=== PATIENT | female | born 2005 | race Caucasian/White ===

== ENCOUNTER 2025-07-07 15:55 | Inpatient (IN) ==
[2025-07-07 16:47] LABS: Hematocrit (blood only) 41.3 % (37.0-47.0); Hemoglobin 13.6 g/dl (12.0-16.0); Immature Granulocytes # (auto) 0.02 K/uL (0.01-0.20); Immature Granulocytes % (auto) 0.3 %; Mean Corpuscular Hemoglobin 26.1 pg (25.0-34.0); Mean Corpuscular Volume 79.3 fL (80.0-100.0); Platelet Count 251 K/uL (130-400); RDW Standard Deviation 35.6 fL (36.4-46.3); Red Blood Count 5.21 M/uL (4.20-5.40); White Blood Count 5.86 K/ul (4.8-10.8)
[2025-07-07 16:48] LABS: Appearance Urine Clear (Clear); Glucose Urine UA Negative (Negative)
[2025-07-07 17:01] LABS: Pregnancy Test, Serum Negative (Negative)
[2025-07-07 17:09] LABS: Alanine Aminotransferase 14 U/L (7-52); Albumin Globulin Ratio 1.0 (0.9-2); Albumin Level 4.3 gm/dl (3.4-5.0); Alkaline Phosphatase 73 U/L (34-104); Anion Gap 10 (3-11); Bilirubin,Total 0.4 mg/dl (0.2-1.0); Blood Urea Nitrogen 9 mg/dl (6-23); Calcium 9.4 mg/dl (8.6-10.3); Carbon Dioxide 22 mmol/L (21-32); Chloride 109 mmol/L (98-107); Globulin 4.2 gm/dl (2.5-4.0); Glucose 99 mg/dl (70-99(Fasting)); Potassium 3.8 mmol/L (3.5-5.1); Sodium 141 mmol/L (136-145); Total Protein 8.5 gm/dl (6.0-8.3)
[2025-07-07 17:16] LABS: Acetaminophen < 3 ug/ml (10-30); Salicylate < 3.0 mg/dl (3.0-30)
--- NOTE | 2025-07-07 17:17 | Emergency Department Note ---
Impression & Plan Threatening suicide, Alcohol intoxication ED Provider Note NAME: MANNY EGAN AGE: 19 SEX: F : 2005 ARRIVES VIA: Ambulance INFORMANT: [Patient] ED PROVIDER(S): [Robert Fritz MD] CHIEF COMPLAINT: Mental health evaluation HISTORY OF PRESENT ILLNESS: The patient is a 19-year-old female who apparently spoke with her sister today and made some suicidal comments. She talked about killing herself with a gun. She though does not own a gun. Because of the comments, she was brought to the hospital for evaluation. She does admit that she was drinking alcohol today but, she states that she was having the thoughts even before drinking. He did talk with our family preservation caseworker prior to my evaluation and, said that if she could not obtain a gun, she would think about drinking alcohol to the point of causing her self harm or, taking [id number] meds to harm herself. The patient states that despite her comments, she would never really hurt herself. She has had suicidal thoughts like this for many years. The patient is upset and depressed over her relationship with her roommates. She states that she is also under a bit of stress from her family. She has never had inpatient mental health treatment. PMHx/PSHx/Social Hx: See Below PHYSICAL EXAM: GENERAL: Patient is in no acute distress. HEENT: No acute trauma, normocephalic atraumatic, mucous membranes dry, no nasal congestion. NECK: No stridor, no adenopathy, no meningismus, trachea is midline. LUNGS: Clear to auscultation bilaterally, no wheeze, no rhonchi, breath sounds equal. HEART: Without murmurs gallops or rubs, regular rate and rhythm. ABDOMEN: Soft, nontender, no peritonitis. EXTREMITIES: No cyanosis, full range of motion of all the joints without pain or difficulty. NEUROLOGIC: Oriented x 3, no acute motor or sensory deficits, no focal weakness. Very subtle speech is slur and oriented. SKIN: No jaundice, no diaphoresis. Psychiatric: Cooperative, voluntary, admits to some suicidal ideation. DIFFERENTIAL DIAGNOSIS: Psychosis, suicidality, alcohol abuse, among others. EMERGENCY DEPARTMENT PROCEDURES: MEDICAL DECISION MAKING: There is no leukocytosis or concerning anemia. There is a normal platelet count. No bandemia. No renal failure or significant electrolyte abnormality. No concerning liver enzyme elevation. Patient appeared to be in a euthyroid state. testing was negative. Urinalysis did not show infection. Aspirin, Tylenol was undetectable. Urine tox was positive for marijuana. Alcohol level was elevated at 241. COVID test was negative. On exam, the patient did appear somewhat intoxicated with alcohol. She was cooperative. Patient is alcohol was allowed to spontaneously clear. Patient was felt clinically sober at around 10:30 PM, 6 hours from when the initial alcohol level was obtained. She was felt medically clear. Patient was seen by psychiatry case management. The patient understands that she is in need of mental health care and, prefers a voluntary psychiatric stay. The 302 petition was denied. A voluntary psychiatric bed search was initiated. Case was assumed by Dr. Eaton at shift change. Prior/Outside records/notes reviewed: None Imaging/x-ray results per my interpretation: Chronic Medical/Social conditions affecting care: None Care/Management discussed with: Psychiatry case management. Level of care consideration(s): After review of the information above and other included data: --I believe the patient requires escalation of care to admission/transfer for a voluntary psychiatric hospitalization. DISPOSITION: Still a patient in the ED. Past Med/Surg History Problem List Alcohol intoxication (Acute) Threatening suicide (Acute) Medical History No significant medical problems Social History Smoking Status: Never smoker Preferred Language: Uzbek Feels Safe at Home: Yes Gender Identity: Female Home Meds Home Medications Medication Instructions Recorded Confirmed Unobtainable 12/28/24 12/28/24 Results & Data (ED) Vital Signs Vital Signs - 24 hr 07/07/25 16:10 07/07/25 16:30 07/07/25 18:45 Temperature 36.8 C 36.8 C Temperature Source Oral Oral Pulse Rate 101 H Pulse Rate [Finger] 88 89 Pulse Rhythm [Finger] Pulse Strength [Finger] Respiratory Rate 20 20 16 Respiratory Effort / Characteristics Non-Labored Spontaneous Respiratory Depth Normal Respiratory Pattern Blood Pressure 125/84 Blood Pressure [Right Arm] 125/84 122/83 Blood Pressure Mean 97 Blood Pressure Mean [Right Arm] 97 96 Blood Pressure Position Sitting Blood Pressure Position [Right Arm] Pulse Oximetry 97 97 98 Oxygen Delivery Method Room Air Room Air Room Air Sepsis Recent Fever Within 48 Hours No Sepsis New/Unexplained Change in Mental Status No Sepsis Action Taken by Nursing No Action Required 07/07/25 21:12 Temperature Temperature Source Pulse Rate Pulse Rate [Finger] 88 Pulse Rhythm [Finger] Regular Pulse Strength [Finger] Normal Respiratory Rate 18 Respiratory Effort / Characteristics Non-Labored Spontaneous Respiratory Depth Normal Respiratory Pattern Regular Blood Pressure Blood Pressure [Right Arm] 131/83 Blood Pressure Mean Blood Pressure Mean [Right Arm] 99 Blood Pressure Position Blood Pressure Position [Right Arm] Semi-fowlers Pulse Oximetry 96 Oxygen Delivery Method Room Air Sepsis Recent Fever Within 48 Hours Sepsis New/Unexplained Change in Mental Status Sepsis Action Taken by Usp Medications Current Medication List: was personally reviewed by me Laboratory Data Attestation: I reviewed the patient's lab results. 07/07/25 16:30 07/07/25 16:30 Lab Results 07/07/25 Range/Units 16:30 WBC 5.86 (4.8-10.8) K/ul RBC 5.21 (4.20-5.40) M/uL Hgb 13.6 (12.0-16.0) g/dl Hct 41.3 (37.0-47.0) % MCV 79.3 L (80.0-100.0) fL MCH 26.1 (25.0-34.0) pg MCHC 32.9 (32.0-36.0) g/dL RDW Std Deviation 35.6 L (36.4-46.3) fL RDW Coeff of Rebecca 12.4 (11.5-14.5) % Plt Count 251 (130-400) K/uL MPV 10.7 (9.4-12.4) fL Immature Gran % (Auto) 0.3 % Neut % (Auto) 55.4 % Lymph % (Auto) 33.8 % Desha % (Auto) 9.7 % Eos % (Auto) 0.3 % Baso % (Auto) 0.5 % Neut # (Auto) 3.24 (1.40-6.50) K/uL Lymph # (Auto) 1.98 (1.20-3.40) K/uL Desha # (Auto) 0.57 (0.11-0.59) K/uL Eos # (Auto) 0.02 (0.00-0.50) K/uL Baso # (Auto) 0.03 (0.00-0.20) K/uL Immature Gran # (Auto) 0.02 (0.01-0.20) K/uL Sodium 141 (136-145) mmol/L Potassium 3.8 (3.5-5.1) mmol/L Chloride 109 H (98-107) mmol/L Carbon Dioxide 22 (21-32) mmol/L Anion Gap 10 (3-11) BUN 9 (6-23) mg/dl Creatinine 0.84 (0.6-1.2) mg/dl Est Cr Clr Drug Dosing Not Reportable eGFR 102.60 BUN/Creatinine Ratio 10.7 (10-20) Glucose 99 (70-99(Fasting)) mg/dl Calcium 9.4 (8.6-10.3) mg/dl Total Bilirubin 0.4 (0.2-1.0) mg/dl AST 20 (13-39) U/L ALT 14 (7-52) U/L Alkaline Phosphatase 73 (34-104) U/L Total Protein 8.5 H (6.0-8.3) gm/dl Albumin 4.3 (3.4-5.0) gm/dl Globulin 4.2 H (2.5-4.0) gm/dl Albumin/Globulin Ratio 1.0 (0.9-2) TSH 1.762 (0.300-4.500) uIu/ml HCG, Qual Negative (Negative) Urine Color Yellow Urine Appearance Clear (Clear) Urine pH 6.0 (4.5-7.5) Ur Specific [place] 1.003 (1.000-1.030) Urine Protein Negative (Negative) Urine Glucose (UA) Negative (Negative) Urine Ketones Negative (Negative) Urine Blood Negative (Negative) Urine Nitrite Negative (Negative) Urine Bilirubin Negative (Negative) Urine Urobilinogen Negative (Negative) Ur Leukocyte Esterase Negative (Negative) Urine Comment Salicylates < 3.0 L (3.0-30) mg/dl Urine Opiates Screen Neg (Neg) Ur Methadone, Qual Neg (Neg) Urine Fentanyl Screen Neg (Neg) Acetaminophen < 3 L (10-30) ug/ml Urine Barbiturates Neg (Neg) Ur Phencyclidine (PCP) Neg (Neg) U Amphetamin/Meth Scrn Neg (Neg) MDMA (Ecstasy) Screen Neg (Neg) U Benzodiazepines Scrn Neg (Neg) Ur Cocaine Metabolite Neg (Neg) U Marijuana (THC) Screen Pos H (Neg) Ethyl Alcohol mg/dL 241.7 H (<10.0) mg/dl SARS-CoV-2, RNA, NAAT NEGATIVE (NEGATIVE) Discharge Plan Visit Data Chief Complaint: Mental Health Evaluation Stated Complaint: [facility] ED Provider: Robert Fritz Discharge Problem: Threatening suicide, Alcohol intoxication Patient Disposition: Still a Patient Condition: Good Forms Stand Alone Forms: [facility], Suicide Prevention Resources Prescriptions Prescriptions: No Action Unobtainable Referrals Referrals: PCP,NO [Physician] - Discharge Problem: Alcohol intoxication Qualifiers: Complication of substance-induced condition: with unspecified complication Q ualified Code(s): F10.929 - Alcohol use, unspecified with intoxication, unspecified
[2025-07-07 17:24] LABS: Thyroid Stimulating Hormone 1.762 uIu/ml (0.300-4.500)
[2025-07-07 17:38] LABS: Amphetamines+Metham, Urine Neg (Neg); MDMA (Ecstacy), Urine Neg (Neg); Marijuana, Urine Pos (Neg)
--- NOTE | 2025-07-08 00:18 | Emergency Department Note ---
ED Visit Note Patient was signed out to me at change of shift by Dr. Fritz. Patient is currently voluntary, bed search was initiated. Patient is here for alcohol intoxication and suicidal thoughts. Current plan is for the patient to be evaluated first by [facility] for placement, this is pending later this morning, patient was therefore signed out to my colleague, Dr. Rosas, pending placement for inpatient care under voluntary status. .
--- NOTE | 2025-07-08 08:00 | Emergency Department Note ---
ED Visit Note I received signout from Dr. Henderson. The patient had been drinking last evening was reportedly suicidal currently voluntary and pending evaluation by [facility] for inpatient treatment. Patient was admitted to [facility] for inpatient treatment. .
[2025-07-08] MEDS ORDERED: ALUMINUM/MAGNESIUM SUSP 30 ML UDC PO PRN (11:06)
[2025-07-08] MEDS ORDERED: BISMUTH SUBSALICYLATE 262 MG CHEW PO PRN (11:06)
[2025-07-08] MEDS ORDERED: ACETAMINOPHEN 325 MG TAB PO PRN (11:06)
[2025-07-08] MEDS ORDERED: MAGNESIUM HYDROXIDE SUSP 30 ML UDC PO PRN (11:06)
[2025-07-08] MEDS ORDERED: SODIUM CHLORIDE 0.65% NA SOLN 45 ML (OCEAN) PRN (11:06)
--- NOTE | 2025-07-08 11:43 | History & Physical ---
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 Diagnostically consistent with unspecified depression with differential including major depressive disorder versus exacerbation of borderline personality disorder with suicidal ideation versus adjustment disorder with depressed mood versus alcohol-induced mood symptoms as well as generalized anxiety disorder. Discussed medication treatment options in detail. Discussed risks, benefits and alternatives. Patient would like to start and consented to sertraline for depression and anxiety. Reviewed side effects including but not limited to: GI, MARKS, sexual side effects, and counseled on black box warning of potential for emergence of or increased SI and need to let staff know should this occur or should they feel unsafe. Also discussed importance of seeking emergency care following discharge if this side effect occurs in the future. She wants to continue with lamictal for off-label use for depression, reviewed side effects including potential for fatal rash/SJS, importance of slow titration monitored by provider, and need to restart at lower dose if she ever misses more than 3 days. The patient's use history and negative consequences suggests possible substance use disorder. Motivational interviewing was done as a brief intervention. Intervention was greater than 5 minutes in length and included assessing readiness to quit, advice on how to reduce or abstain and to set a specific goal for this hospitalization. domestic laundry worker will also assist in anticipating barri ers to reducing or abstaining from substance use and in problem-solving for solutions to those problems while arranging for referral to appropriate treatment. The patient is in contemplative stage with regards to transtheoretical model of change. Recommended decreasing consumption due to disinhibiting effects and potential for worsening psychiatric symptoms. Overall I spent a total of 75 minutes for this admission including review of chart records, review of labwork, direct evaluation of the patient, counseling the patient, ordering medication, risk assessment, discussion with the psychiatric liason RN and documentation in the electronic health record. (1) Depression with suicidal ideation: (2) Alcohol intoxication: Complication of substance-induced condition: with unspecified complication Qualified Code(s): F10.929 - Alcohol use, unspecified with intoxication, unspecified (3) LAWRENCE (generalized anxiety disorder): Plan 07/08/2025: The patient was admitted to the [facility] ([facility]) on q15 min checks (behavioral with suicide precautions) for safety. The patient will participate in group, recreational, and milieu therapies and will be offered additional individual and family sessions as clinically appropriate. -Start sertraline 50mg daily -Continue Lamictal 50mg daily -Consider options for IOP Inventory Assets Strengths: supportive relationships, willing to get treatment Needs: safety and stabilization, medication adjustment, additional coping skills, increased outpatient services Suicide Risk Level Suicide Risk Level: Moderate (q15 min suicide checks) (depression with increased SI in context of conflict with roommates but mood improving and feels safe in the hospital and feels able to ask for support) Risk Factors Assessment Male: No : Yes Do You Have Access To A Gun?: No Health Problems: No Mental Health Diagnoses: Yes Previous Attempt: No Family History of Suicide: No Previous Psychiatric Hospitalization: No Hopelessness: No Protective Factors Assessment : No Responsible for Young Children: No Employed: Yes Supportive Family: Yes Good Rapport with Provider: Yes Psychiatric History Identifying Data MANNY Nielsen" is a 19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 Chief Complaint "Yesterday was just a really bad day". History of Present Illness Latia presents for psychiatric admission following suicidal statements made to her sister over the phone, which resulted in police intervention and hospitalization. She reports that yesterday was "just a really bad day" following what has been "a rough year." She explains that she has been doing well for the past few months, but yesterday represented a significant crash. The precipitating stressors began over the last week when she realized her friend and roommate "hates me" and on Wednesday one of her roommates told her "I think it is probably best that you move out, and I think everybody else in this house shares that sentiment." She also lost her birthday cake that she had been looking forward to for 5 years, which added to her disappointment. She describes severe ongoing conflict with all three of her roommates, who she reports "hate me." She explains that one roommate, who was previously one of her closest friends, has apparently hated her for 3 months without her knowledge and has been manipulating their friend group by talking negatively about her behind her back. Due to this hostile living environment, she has been isolating in her room and avoiding common areas of the townhouse. The roommates have told her to move out, creating additional stress about finding new housing within a month. On Wednesday night she had poor sleep due to her roommates being loud with people they had invited over. She was trying to remain excited for her birthday libertarian despite none of her roommates attending but then she lost her birthday cake. She reports listening to Radiohead, which she acknowledges "don't really make happy music" and may have been "the final straw." She began drinking around noon and called her sister around 12:30 PM as a coping mechanism, having been encouraged by others to talk to someone when feeling suicidal rather than dealing with it alone as she typically does. The roommates overheard her conversation and called police, who arrived around 1:00 PM on Wednesday. She had an elevated alcohol level when she arrived at the hospital, having consumed alcohol over approximately an hour to hour and a half span prior to being brought to the ED. She describes her typical pattern of suicidal thoughts as lasting about an hour before passing, and she reports feeling she was "starting to come out of it" when police arrived. She denies current suicidal ideation and states she was frustrated that using a healthy coping skill for the first time resulted in hospitalization when she typically works through these episodes independently. She reports she sometimes thinks about suicidal plans but "never in a serious way". However, she does acknowledge telling ED providers that she was considering suicide via multiple possible means like overdosing, using a gun or drinking herself to with alcohol and recognizes this is a bit at odd's with her current reflection of her suicidality being brief and fairly benign. She describes her reasons for living as not wanting to remove her "awesomeness" from the world, wanting to have children and get , and viewing suicide as "lame" and "too much work." Latia is currently taking Lamictal 50mg in the morning for mood swings, which she started approximately a month and a half ago in early April. She reports discussing the possibility of borderline personality disorder with her out patient providers. She previously took Zoloft in 11th grade for anxiety, which worked well, and she discontinued it when she felt she no longer needed it and her anxiety resolved. Psychiatric ROS notable for no current nor history of symptoms of suzanne, psychosis, PTSD, OCD nor eating disorder nor self-harm. Past Psychiatric History Current Psychiatric Diagnosis: Depression, Borderline Personality Disorder Outpatient Services: Therapist-Antonia, sees her weekly or twice monthly when doing well Psychiatrist-Kasandra Stafford ([facility]), have seen her twice Previous Psych Admissions: none Do You Have Access To A Gun?: No History of Previous Suicide Attempt: No Past Medication Trials: zoloft (helpful, stopped because she didn't need it anymore) Past Head Trauma/Neuro History History of Concussion/Seizure: No Allergies Allergy/AdvReac Type Severity Reaction Status Date / Time No Known Allergies Allergy Unverified 07/08/25 11:30 Home Medications Medication Instructions Recorded Confirmed Type drospirenone 3 mg-ethinyl 1 tab PO DAILY 07/08/25 07/08/25 History estradiol 0.02 mg tablet (Vestura (28)) lamotrigine 25 mg tablet 50 mg PO DAILY 07/08/25 07/08/25 History Family History Family History of: Anxiety (father's side) and Other-List under Comment (mom- ADHD, maternal grandfather with narcissism/cluster B) Alcohol History Hx of Alcohol Use Over the Past 12 Months: Yes periods of binge drinking but she feels her drinking is well controlled, sometimes 5 drinks over 2-3 hours and drinks once every other week Smoking Use Smoking Status: Never smoker Substance History Hx of Prescription Med Misuse Over the Past 12 Months: No Hx of Over the Counter Med Misuse Over the Past 12 Months: No Hx of Inhalent Misuse Over the Past 12 Months: No Hx of Organic Substance Use Over the Past 12 Months: Yes (marijuana) Hx of Illegal Substances/Street Drug Use Over Past 12 Months: No Problems as a Result of Past Substance Use: Loss of Family Support Problems as a Result of Past Substance Use Comments: underage drinking last year Personal History Living Arrangements: Apartment Highest Grade Completed: Some College ([employer]) 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) Marital Status: Single Current Legal Problems: No Hx Legal Problems: Yes (December underage drinking, now expunged) Hx Traumatic Life Events: Yes Patient History Medical History No significant medical problems Social History Smoking Status: Never smoker Preferred Language: Upper Sorbian Communication Ability: Effective Internal Communications Writer Required: No Beliefs That Will Affect Care: None Feels Safe at Home: Yes Gender Identity: Female Assistive Devices: None Review of Systems Review of Systems: All systems reviewed & are unremarkable except as noted in HPI & below (periods of low back pain) Physical Exam Psychiatric: Orientation: alert and oriented x 3 Apperance: appropriately dressed and appropriately groomed Eye Contact: good eye contact Motor Behavior: no abnormal motor movements Speech: normal rate/rhythm/volume of speech Affect: euthymic affect, + tearful affect and + labile affect; + mood not congruent with affect Mood: + depressed mood and + anxious mood Thought Process: goal directed thought process Thought Content: reality based without delusions Suicidal Thoughts: denies suicidal plan and denies suicidal intent; + reports suicidal thoughts (intermittent thoughts ) Homicidal Thoughts: denies homicidal thoughts Hallucinations: no auditory hallucinations and no visual hallucinations Cognition: recent memory grossly intact, remote memory grossly intact, attention grossly intact and language grossly intact Estimated Intelligence: consistent with education level Insight: + fair insight Judgment: + limited judgement Vital Signs (Past 24 Hours): Last Vital Signs Temp 36.8 C 07/07/25 16:30 Pulse 86 07/08/25 09:54 Resp 18 07/08/25 09:54 BP 129/72 07/08/25 09:54 Pulse Ox 98 07/08/25 09:54 O2 Del Method Room Air 07/08/25 09:54 Exam Statement: A physical exam was performed in the ED by Dr. Fritz for the purposes of medical clearance. I accept that physical as correct and adequate for the purposes of the inpatient physical exam. Results & Data ([facility]) Laboratory Results Laboratory Results - last 24 hr 07/07/25 16:30 WBC 5.86 RBC 5.21 Hgb 13.6 Hct 41.3 MCV 79.3 L MCH 26.1 MCHC 32.9 RDW Std Deviation 35.6 L RDW Coeff of Rebecca 12.4 Plt Count 251 MPV 10.7 Immature Gran % (Auto) 0.3 Neut % (Auto) 55.4 Lymph % (Auto) 33.8 Robertson % (Auto) 9.7 Eos % (Auto) 0.3 Baso % (Auto) 0.5 Neut # (Auto) 3.24 Lymph # (Auto) 1.98 Robertson # (Auto) 0.57 Eos # (Auto) 0.02 Baso # (Auto) 0.03 Immature Gran # (Auto) 0.02 Sodium 141 Potassium 3.8 Chloride 109 H Carbon Dioxide 22 Anion Gap 10 BUN 9 Creatinine 0.84 Est Cr Clr Drug Dosing Not Reportable eGFR 102.60 BUN/Creatinine Ratio 10.7 Glucose 99 Calcium 9.4 Total Bilirubin 0.4 AST 20 ALT 14 Alkaline Phosphatase 73 Total Protein 8.5 H Albumin 4.3 Globulin 4.2 H Albumin/Globulin Ratio 1.0 TSH 1.762 HCG, Qual Negative Urine Color Yellow Urine Appearance Clear Urine pH 6.0 Ur Specific [place] 1.003 Urine Protein Negative Urine Glucose (UA) Negative Urine Ketones Negative Urine Blood Negative Urine Nitrite Negative Urine Bilirubin Negative Urine Urobilinogen Negative Ur Leukocyte Esterase Negative Urine Comment Salicylates < 3.0 L Urine Opiates Screen Neg Ur Methadone, Qual Neg Urine Fentanyl Screen Neg Acetaminophen < 3 L Urine Barbiturates Neg Ur Phencyclidine (PCP) Neg U Amphetamin/Meth Scrn Neg MDMA (Ecstasy) Screen Neg U Benzodiazepines Scrn Neg Ur Cocaine Metabolite Neg U Marijuana (THC) Screen Pos H U Marijuana THC Carboxy Pending Drug Screen Comment Pending Ethyl Alcohol mg/dL 241.7 H SARS-CoV-2, RNA, NAAT NEGATIVE Current Inpatient Medications Current Inpatient Medications: Current Inpatient Medications Acetaminophen (Acetaminophen 325 Mg Tab) 650 mg PO Q4H PRN PRN Reason: Headache or Minor Fever Stop: 08/07/25 11:05 Al Hydrox/Mg Hydrox/Simethicone (Aluminum/Magnesium Susp 30 Ml Udc) 30 ml PO Q4H PRN PRN Reason: GI Upset Stop: 08/07/25 11:05 Bismuth Subsalicylate (Bismuth Subsalicylate 262 Mg Chew) 2 tab PO Q30M PRN PRN Reason: Loose Stool/Diarrhea Stop: 08/07/25 11:05 Hydroxyzine HCl (Hydroxyzine Hcl 25 Mg Tab) 50 mg PO HSZ PRN PRN Reason: Insomnia Stop: 08/07/25 11:05 Hydroxyzine HCl (Hydroxyzine Hcl 25 Mg Tab) 25 mg PO Q4H PRN PRN Reason: Anxiety Stop: 08/07/25 11:05 Magnesium Hydroxide (Magnesium Hydroxide Susp 30 Ml Udc) 30 ml PO DAILY PRN PRN Reason: Constipation Stop: 08/07/25 11:05 Sodium Chloride (Sodium Chloride 0.65% Na Soln 45 Ml ([place])) 1 - 2 sprays NA PRN PRN PRN Reason: Nasal Dryness/Congestion Stop: 08/07/25 11:05
[2025-07-08] MEDS: lamoTRIgine 25 MG TAB PO SCH (12:13)
[2025-07-08] MEDS: SERTRALINE HCL 50 MG TABLET PO SCH (12:13)
--- NOTE | 2025-07-09 09:00 | Psychiatric Progress Note ---
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 Diagnostically consistent with unspecified depression with differential including major depressive disorder versus exacerbation of borderline personality disorder with suicidal ideation versus adjustment disorder with depressed mood versus alcohol-induced mood symptoms as well as generalized anxiety disorder. A: Mood improving, tolerating sertraline so far. She consents to starting protonix for suspected GERD. Reviewing IOP options and SW completing referrals. Coordinating support meeting. Symptom questionnaires reviewed and notable for positive Joselyn BPD screen, negative MDQ, PHQ-9 score of 11, LAWRENCE-7 score of 7. Provided psychoeducation about BPD and reviewed DBT framework and resources. Overall, I spent a total of 36 minutes on this case including meeting with the patient, reviewing the chart, nursing report, multidisciplinary team meeting, orders, and documentation. (1) Depression with suicidal ideation: (2) Borderline personality disorder: (3) Alcohol intoxication: (4) LAWRENCE (generalized anxiety disorder): Plan 07/09/2025: -Continue current medications and tx plan 07/08/2025: The patient was admitted to the [facility] ([facility]) on q15 min checks (behavioral with suicide precautions) for safety. The patient will participate in group, recreational, and milieu therapies and will be offered additional individual and family sessions as clinically appropriate. -Start sertraline 50mg daily -Continue Lamictal 50mg daily -Consider options for IOP Inventory Assets Strengths: supportive relationships, willing to get treatment Needs: safety and stabilization, medication adjustment, additional coping skills, increased outpatient services Suicide Risk Level Suicide Risk Level: Moderate (q15 min suicide checks) (depression with increased SI in context of conflict with roommates but mood improving, denies SI and feels safe in the hospital and feels able to ask for support) Suicide Risk Level Comments: Risk Factors Assessment Male: No : Yes Do You Have Access To A Gun?: No Health Problems: No Mental Health Diagnoses: Yes Previous Attempt: No Family History of Suicide: No Previous Psychiatric Hospitalization: No Hopelessness: No Protective Factors Assessment : No Responsible for Young Children: No Employed: Yes Supportive Family: Yes Good Rapport with Provider: Yes Interval History Identifying Information MANNY Nielsen" is a 19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 Chief Complaint "Good". Review of Systems Sleep Information Total Hours of Sleep: 7 Meal Information Percent Meal Consumed - Lunch: 100 Percent Meal Consumed - Dinner: 25 Subjective Subjective Patient was seen & assessed and interval progress reviewed with treatment team. Attended groups. Put in a 72 hour notice which expires on 07/11/2025 evening. Today she reports "good" mood. Denies SI. She is planning to return to [place] and live with her parents after discharge. Tolerating initiation of sertraline without any side effects. Working on IOP referral. Having some nausea which she relates to GERD, she'd like to start protonix for this. Reviewed her symptom questionnaires. Discussed DBT strategies to cope with intense emotions and reviewed components of DBT and online resource she could utilize in individual therapy. Physical Exam Psychiatric Orientation: alert and oriented x 3 Apperance: appropriately dressed and appropriately groomed Eye Contact: good eye contact Motor Behavior: no abnormal motor movements Speech: normal rate/rhythm/volume of speech Affect: euthymic affect Mood: no depressed mood and no anxious mood Thought Process: goal directed thought process Thought Content: reality based without delusions Suicidal Thoughts: denies suicidal thoughts, denies suicidal plan and denies suicidal intent Homicidal Thoughts: denies homicidal thoughts Hallucinations: no auditory hallucinations and no visual hallucinations Cognition: recent memory grossly intact, remote memory grossly intact, attention grossly intact and language grossly intact Estimated Intelligence: consistent with education level Insight: + fair insight Judgment: + fair judgement Vital Signs (Past 24 Hours) Last Vital Signs Temp 36.5 C 07/09/25 06:00 Pulse 84 07/09/25 06:31 Resp 16 07/09/25 06:00 BP 123/90 07/09/25 06:31 Pulse Ox 98 07/09/25 06:00 O2 Del Method Room Air 07/09/25 06:00 Results & Data ([facility]) Current Inpatient Medications Current Inpatient Medications: Current Inpatient Medications Acetaminophen (Acetaminophen 325 Mg Tab) 650 mg PO Q4H PRN PRN Reason: Headache or Minor Fever Stop: 08/07/25 11:05 Al Hydrox/Mg Hydrox/Simethicone (Aluminum/Magnesium Susp 30 Ml Udc) 30 ml PO Q4H PRN PRN Reason: GI Upset Stop: 08/07/25 11:05 Bismuth Subsalicylate (Bismuth Subsalicylate 262 Mg Chew) 2 tab PO Q30M PRN PRN Reason: Loose Stool/Diarrhea Stop: 08/07/25 11:05 Hydroxyzine HCl (Hydroxyzine Hcl 25 Mg Tab) 50 mg PO HSZ PRN PRN Reason: Insomnia Stop: 08/07/25 11:05 Hydroxyzine HCl (Hydroxyzine Hcl 25 Mg Tab) 25 mg PO Q4H PRN PRN Reason: Anxiety Stop: 08/07/25 11:05 Lamotrigine (Lamotrigine 25 Mg Tab) 50 mg PO DAILY MARLY; Protocol Stop: 08/07/25 11:59 Last Admin: 07/09/25 08:21 Dose: 50 mg Magnesium Hydroxide (Magnesium Hydroxide Susp 30 Ml Udc) 30 ml PO DAILY PRN PRN Reason: Constipation Stop: 08/07/25 11:05 Sertraline HCl (Sertraline Hcl 50 Mg Tablet) 50 mg PO QAM MARLY Stop: 08/07/25 11:59 Last Admin: 07/09/25 08:22 Dose: 50 mg Sodium Chloride (Sodium Chloride 0.65% Na Soln 45 Ml (Ruth)) 1 - 2 sprays NA PRN PRN PRN Reason: Nasal Dryness/Congestion Stop: 08/07/25 11:05 Mental Health & Subst Abuse Tx Therapist Name of Therapist: Antonia @ [facility] Manager Intensive Care Unit Name of Manager Intensive Care Unit: N/A (3) Alcohol intoxication Complication of substance-induced condition: with unspecified complication Qualified Code(s): F10.929 - Alcohol use, unspecified with intoxication, unspecified
--- NOTE | 2025-07-10 10:57 | Discharge Summary ---
Date of Service July 10, 2025 History of Present Illness Latia presents for psychiatric admission following suicidal statements made to her sister over the phone, which resulted in police intervention and hospitalization. She reports that yesterday was "just a really bad day" following what has been "a rough year." She explains that she has been doing well for the past few months, but yesterday represented a significant crash. The precipitating stressors began over the last week when she realized her friend and roommate "hates me" and on Wednesday one of her roommates told her "I think it is probably best that you move out, and I think everybody else in this house shares that sentiment." She also lost her birthday cake that she had been looking forward to for 5 years, which added to her disappointment. She describes severe ongoing conflict with all three of her roommates, who she reports "hate me." She explains that one roommate, who was previously one of her closest friends, has apparently hated her for 3 months without her knowledge and has been manipulating their friend group by talking negatively about her behind her back. Due to this hostile living environment, she has been isolating in her room and avoiding common areas of the townhouse. The roommates have told her to move out, creating additional stress about finding new housing within a month. On Wednesday night she had poor sleep due to her roommates being loud with people they had invited over. She was trying to remain excited for her birthday libertarian despite none of her roommates attending but then she lost her birthday cake. She reports listening to Radiohead, which she acknowledges "don't really make happy music" and may have been "the final straw." She began drinking around noon and called her sister around 12:30 PM as a coping mechanism, having been encouraged by others to talk to someone when feeling suicidal rather than dealing with it alone as she typically does. The roommates overheard her conversation and called police, who arrived around 1:00 PM on Wednesday. She had an elevated alcohol level when she arrived at the hospital, having consumed alcohol over approximately an hour to hour and a half span prior to being brought to the ED. She describes her typical pattern of suicidal thoughts as lasting about an hour before passing, and she reports feeling she was "starting to come out of it" when police arrived. She denies current suicidal ideation and states she was frustrated that using a healthy coping skill for the first time resulted in hospitalization when she typically works through these episodes independently. She reports she sometimes thinks about suicidal plans but "never in a serious way". However, she does acknowledge telling ED providers that she was considering suicide via multiple possible means like overdosing, using a gun or drinking herself to with alcohol and recognizes this is a bit at odd's with her current reflection of her suicidality being brief and fairly benign. She describes her reasons for living as not wanting to remove her "awesomeness" from the world, wanting to have children and get , and viewing suicide as "lame" and "too much work." Latia is currently taking Lamictal 50mg in the morning for mood swings, which she started approximately a month and a half ago in early April. She reports discussing the possibility of borderline personality disorder with her outpatient providers. She previously took Zoloft in 11th grade for anxiety, which worked well, and she discontinued it when she felt she no longer needed it and her anxiety resolved. Psychiatric ROS notable for no current nor history of symptoms of suzanne, psychosis, PTSD, OCD nor eating disorder nor self-harm. Physical Exam Vital Signs (Past 24 Hours) Last Vital Signs Temp 36.6 C 07/10/25 06:41 Pulse 80 07/10/25 06:41 Resp 16 07/10/25 06:41 BP 116/82 07/10/25 06:42 Pulse Ox 98 07/10/25 06:41 O2 Del Method Room Air 07/10/25 06:41 Principal Diagnosis Unspecified Depressive Disorder Psychiatric Data See daily stay summary. In short, patient was engaged with the social/therapeutic milieu of the unit, safety was maintained and the patient was cooperative with care. She did sign a 72 hour notice but engaged with disposition planning. Medication changes included initiation of sertraline 50mg daily for depression and anxiety and they tolerated this well. A support session was held and safety plan was completed prior to discharge. The evening prior to discharge she and the treatment team were made aware that in the events leading to hospitalization she not only made statements of suicide but also threatened to kill her roommates. She had not recalled doing this but after reading the [employer] report did start to have some hazy recollection of this. She notes she is regretful for this and denies any thoughts of HI nor any history of violence. We discussed the role of alcohol use and engaged in motivational interviewing. She plans to stop drinking and feels confident she can do this as her parents have no alcohol at home and she went all summer without drinking. Discussed additional resources should she have trouble stopping her alcohol use. She remains encouraged by hope that increasing her DBT skills through IOP will help her better manage her emotional reactions of sadness and anger. She continues to feel safe and desires discharge today with her family. They participated in safety planning and in discussions about ways to seek sup port and recognizing warning signs and utilizing coping skills. Reviewed ways to have their safety plan and contacts easily available should thoughts of SI re- emerge in the future. Reviewed importance of seeking emergency care should SI intensify, worsen or should they feel unsafe in the future which they agree to do. On the day of discharge they stated their mood was "surprisingly ok, I can't undo what I said and did (to her roommates) but I'm trying to make reparations and move past this" and remained future-oriented including spending time with her family celebrating her birthday, seeing her dog, relaxing and engaging in aftercare appointments for psychiatry, IOP therapy and [employer] student care and advocacy. Day of Discharge Assessment Today the patient voices readiness for discharge. They note improvement in mood and anxiety. They deny thoughts of harm to self or others. Thoughts remain organized and they are clinically improved from admission. There is no evidence of psychosis. They improved in the hospital with support and medication adjustments. They agree to take medications as prescribed and keep follow-up appointments. At the time of the discharge they are deemed to be stable and appropriate for outpatient level of care. They are not deemed to be at imminent risk of harm to self or others. They are aware of emergency and crisis services. Knows to call 911 or go to nearest emergency care center if in a crisis which cannot be handled as an outpatient. Suicide risk assessment: Acute risk is low given improvement in mood and denial of SI, lack of access to lethal means, plan to avoid substance use, hopefulness. Chronic risk is moderate given some non-modifiable risk factors: psychiatric co-morbid diagnoses, periods of impulsivity, emotional reactivity, prior psychiatric hospitalization, cluster B personality disorder, but also with protective factors including good social support, sense of responsibility to family and social supports, outpatient care in place, positive coping skills, positive problem solving, willingness to engage with treatment and self-observation. Counseled on ways to reduce acute and chronic risk including engaging with outpatient providers, using safety plan if needed, utilizing supports, taking medication, and using coping skills. Modifiable risk factors of SI and depression were addressed during hospitalization through development of new coping skills, support meeting, safety planning, and medication adjustments. Acute risk of self-harm is low given denial of HI, no known history of violence and plan to avoid alcohol use. Chronic risk is low given no history of violence/legal issues. Discharge physical exam: See admission H&P, MSE per above and day of discharge summary. Overall, I spent a total of 35 minutes on this case including meeting with the patient, reviewing the chart, nursing report, multidisciplinary team meeting, discharge orders, anticipatory planning, safety planning, risk assessment and documentation. Transition of Care Transition Of Care Record: was reviewed with the patient Advance Directives Advance Directives Information Provided: Yes Advance Directives: No Mental Health Advance Directive: No Advance Directives on File: No Living Will: No Power of Automobile Locator: No Advance Directives Reason:: Declines as Mental Health Visit. Suicide Risk Level Suicide Risk Level Comments: see assessment above Risk Factors Assessment Male: No : Yes Do You Have Access To A Gun?: No Health Problems: No Mental Health Diagnoses: Yes Previous Attempt: No Family History of Suicide: No Previous Psychiatric Hospitalization: No Hopelessness: No Protective Factors Assessment Uatsdin Beliefs: Yes : No Responsible for Young Children: No Employed: Yes Supportive Family: Yes Good Rapport with Provider: Yes Discharge Data Lab Results 07/07/25 16:30 WBC 5.86 RBC 5.21 Hgb 13.6 Hct 41.3 MCV 79.3 L MCH 26.1 MCHC 32.9 RDW Std Deviation 35.6 L RDW Coeff of Rebecca 12.4 Plt Count 251 MPV 10.7 Immature Gran % (Auto) 0.3 Neut % (Auto) 55.4 Lymph % (Auto) 33.8 [place] % (Auto) 9.7 Eos % (Auto) 0.3 Baso % (Auto) 0.5 Neut # (Auto) 3.24 Lymph # (Auto) 1.98 [place] # (Auto) 0.57 Eos # (Auto) 0.02 Baso # (Auto) 0.03 Immature Gran # (Auto) 0.02 Sodium 141 Potassium 3.8 Chloride 109 H Carbon Dioxide 22 Anion Gap 10 BUN 9 Creatinine 0.84 Est Cr Clr Drug Dosing Not Reportable eGFR 102.60 BUN/Creatinine Ratio 10.7 Glucose 99 Calcium 9.4 Total Bilirubin 0.4 AST 20 ALT 14 Alkaline Phosphatase 73 Total Protein 8.5 H Albumin 4.3 Globulin 4.2 H Albumin/Globulin Ratio 1.0 TSH 1.762 HCG, Qual Negative Urine Color Yellow Urine Appearance Clear Urine pH 6.0 Ur Specific [place] 1.003 Urine Protein Negative Urine Glucose (UA) Negative Urine Ketones Negative Urine Blood Negative Urine Nitrite Negative Urine Bilirubin Negative Urine Urobilinogen Negative Ur Leukocyte Esterase Negative Urine Comment Salicylates < 3.0 L Urine Opiates Screen Neg Ur Methadone, Qual Neg Urine Fentanyl Screen Neg Acetaminophen < 3 L Urine Barbiturates Neg Ur Phencyclidine (PCP) Neg U Amphetamin/Meth Scrn Neg MDMA (Ecstasy) Screen Neg U Benzodiazepines Scrn Neg Ur Cocaine Metabolite Neg U Marijuana (THC) Screen Pos H Ethyl Alcohol mg/dL 241.7 H SARS-CoV-2, RNA, NAAT NEGATIVE Hospital Course (1) Depression with suicidal ideation: (2) Borderline personality disorder: (3) Alcohol intoxication: (4) LAWRENCE (generalized anxiety disorder): Plan 07/10/2025: -She feels safe and ready for discharge and would like to leave today with her family. 07/09/2025: -Continue current medications and tx plan 07/08/2025: The patient was admitted to the [facility]) on q15 min checks (behavioral with suicide precautions) for safety. The patient will participate in group, recreational, and milieu therapies and will be offered additional individual and family sessions as clinically appropriate. -Start sertraline 50mg daily -Continue Lamictal 50mg daily -Consider options for IOP Mental Health & Subst Abuse Tx Psychiatrist Name of [facility]iat[facility] Psychiatric Appointment Comment: Resume after IOP Psychiatrist Release of Information: Obtained, Reviewed and Signed Therapist Name of Therapist: Antonia at [facility] Therapist's Therapy Appointment Comment: Resume after IOP Therapist Release of Information: Obtained, Reviewed and Signed Mammography Tech Name of Mammography Tech: N/A Post Discharge Appointments Primary Care Physician Name Of Family Doctor/PCP: [facility]David Barone Primary Care Provider Appointment Comment: Follow up as needed Primary Care Release of Information: Obtained, Reviewed and Signed Partial or Psych Rehab Name of Partial or Psych Rehab: [facility] ([address] [place] [address]) Phone Number of Partial or Psych Rehab: [phone] Date of Appointment at Partial or Psych Rehab: 07/12/25 Time of Appointment at Partial or Psych Rehab: 10am (3 hours long) for intake, then stay for remainder of day Partial or Psych Rehab Appointment Comment: 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, Bring lunch or money for cafe Release of Information for Partial or Psych Rehab: Obtained, Reviewed and Signed [facility]ist [facility] Phone Number for Specialist: [phone] Specialty Appointment Comment: Self refer if interested Specialist Release of Information: Obtained, Reviewed and Signed Contact Information Discharge Discharge Address: [address] [place] [address] , [place] [address] Discharge Plan Discharge Items Patient Disposition: Home - Self-Care Reason For Visit: UNSPECIFIED MOOD DISORDER Discharge Diagnosis: Unspecified Depressive Disorder Condition on Discharge: Good Activity: Resume your previous activity Non-emergency contact: Primary Care Provider, Psychiatrist and Therapist Call non-emergency contact if: you have any medication questions and your symptoms worsen Follow-up/Referrals: David Barone PA-C [Primary Care Provider] - Diet: Regular Addtl Attending Provider Instructions: Optional mobile apps we discussed: -Suicide safety plan -Virtual Hope Box Optional DBT resource: [email or web address] SPECIAL CARE INSTRUCTIONS: 1. Follow through with your scheduled aftercare appointments. If unable to keep an appointment, please call to reschedule. 2. Take your medication only as prescribed. Medication should not be changed or stopped without the approval of your doctor. In the event of worsening symptoms or concerns about side effects, contact your doctor immediately. 3. Utilize new healthy coping skills, anger management skills, and stress management skills learned during your hospitalization. Journal feelings and process them with a support person. Identify stressors or situations that may result in relapse, deterioration or inappropriate behaviors and develop a plan to deal with those issues. 4. If your coping skills are ineffective and you are in crisis, contact your outpatient providers for direction. If unable to reach your providers, please call the [facility] CRISIS LINE AT , go to the [facility] walk-in center at [address], [address], [place], or go to the closest Emergency Room. 5. Avoid alcohol and un-prescribed drugs. 6. You have been provided with the Mental Health Advance Directives Pamphlet for your review. 7. Your condition is stable for discharge to outpatient level of care, but recovery is an ongoing process. Ifthoughts to harm yourself or others return, follow the safety plan developed during your stay. Planning for a safe return home includes securing weapons. Our treatment team recommends weaponsbe removed from the home until your outpatient provider reassesses your progress. In rare cases where the items themselvescannot be removed, guns and ammunitionshould be secured separatelyand keys stored by a reliable personoutside of the home. If you were admitted on an involuntary commitment, the police or other legal authorities may be involved in this process. AFTERCARE APPOINTMENTS: * Please call your insurance company prior to your scheduled appointment to confirm your aftercare providers are covered. Take your insurance information to your appointments. WHO TO CALL AND WHEN: Medical Emergencies: For questions or emergencies related to your hospital stay, please contact the Inpatient Behavioral Health Unit at [phone]. A nail technician is on-call 19/04 for the Behavioral Health Unit for emergencies At any time you feel your situation is an emergency, you may also call 911 immediately. National Crisis Hotline: 988 Pending Studies at Discharge: No Stand-Alone Forms: My [facility] Medications and DC Order Prescriptions: New pantoprazole 40 mg Tablet,Delayed Release (Dr/Ec) 40 mg PO QAM 30 Days Qty: 30 0RF sertraline 50 mg Tablet 50 mg PO QAM 30 Days Qty: 30 0RF Continued lamotrigine 25 mg tablet 50 mg PO DAILY drospirenone-ethinyl estradiol [Vestura (28)] 3-0.02 mg tablet 1 tab PO DAILY Discharge Orders: Discharge Order (Routine); Ordered 07/10/25 Ordered By: Elizabeth Neely Admission Data Admit Date/Time: 07/08/25 09:23 Attending Provider: Elizabeth Neely Admit Provider: Elizabeth Neely Primary Care Provider: David Barone Other Interventions: Discharge Summary Assessment (RN) Last Done: 07/10/25 11:03 PSY Interdisciplinary Discharge Planning Last Done: 07/10/25 11:03 Coding Level of Care Code 37243 D/C day mgmt > 30 min Diagnoses Depression with suicidal ideation F32.A; R45.851 Borderline personality disorder F60.3 Alcohol intoxication F10.929 Complication of substance-induced condition: with unspecified complication LAWRENCE (generalized anxiety disorder) F41.1
--- NOTE | 2025-07-10 11:10 | Communication Note ---
Date of Service: July 10, 2025 @ 11:05am Duty to oumar completed to [facility] [place] Police prior to her discharge regarding her reported statements of HI toward her roommates prior to admission per [facility] documentation received last evening. Myra gave permission for me to share with [facility] police that she was no longer having any homicidal thoughts and had received and would be continuing to receive mental health treatment. [facility] Police indicated they would notify the appropriate people (i.e. her roommates).
[2025-07-11 17:02] LABS: Marijuana Quant, GCMS Urine 23 ng/mL (<5)
== END 2025-07-10 11:45 | disposition home or self-care (01) | DRG 880 ==
LOC: ED 15:55 → 3S 07-08 09:23